=== PATIENT | female | born 1940 ===

== ENCOUNTER 2016-04-27 07:16 | Inpatient (IN) | payer OTHER ==
[~2016-04-27] VITALS: Ht 157.5 cm; Wt 61.2 kg
[2016-04-27] MEDS ORDERED: ALVIMOPAN 12 MG CAPSULE PO ONE (07:47)
[2016-04-27] MEDS ORDERED: cefOXitin SODIUM 2 GM in D5W 100 ML IV ONE (08:00)
[2016-04-27] MEDS ORDERED: ALEN10TA6 PO (08:31)
[2016-04-27] MEDS ORDERED: DILT60TA35 PO (08:31)
[2016-04-27] MEDS ORDERED: EZET10TA PO (08:31)
[2016-04-27] MEDS ORDERED: METF-509 PO (08:31)
[2016-04-27] MEDS ORDERED: PROPOFOL 200MG/ 20ML VIAL (DIPRIVAN) IV ONE (09:11)
[2016-04-27] MEDS ORDERED: ONDANSETRON HCL 4 MG/2 ML VIAL IVP ONE (09:11)
[2016-04-27] MEDS ORDERED: LR 1,000 ML IV.SOLN IV ONE (09:11)
[2016-04-27] MEDS ORDERED: cefOXitin SODIUM 2 GM/VIAL (MEFOXIN) IV ONE (09:11)
[2016-04-27] MEDS ORDERED: MIDAZOLAM HCL 5 MG/5 ML VIAL IVP ONE (09:11)
[2016-04-27] MEDS ORDERED: ROCURONIUM BROMIDE 10 MG/ML (ZEMURON) IV ONE (09:11)
[2016-04-27] MEDS ORDERED: fentaNYL CITRATE/PF 100 MCG/2 ML AMP IVP ONE (09:11)
[2016-04-27] MEDS ORDERED: SEVOFLURANE 15 MIN GAS INH ONE (09:11)
[2016-04-27] MEDS ORDERED: NS IRRIG SOLN 1000 ML IR ONE (09:11)
[2016-04-27] MEDS ORDERED: KETOROLAC TROMETHAMINE 30 MG VIAL IVP ONE (09:11)
[2016-04-27] MEDS ORDERED: METOPROLOL TARTRATE 5 MG/5 ML VIAL IVP ONE (09:11)
[2016-04-27] MEDS ORDERED: LR 1,000 ML IV SCH (09:57)
[2016-04-27] MEDS ORDERED: HYDROmorphone 1 MG INJ. 1 MG/ML AMPUL IVP PRN (10:00)
[2016-04-27] MEDS ORDERED: ONDANSETRON HCL 4 MG/2 ML VIAL IVP PRN ×2 (10:00→12:15)
[2016-04-27] MEDS ORDERED: MEPERIDINE HCL/PF 25 MG/ML DISP.SYRIN IVP PRN ×2 (10:00)
[2016-04-27] MEDS ORDERED: HYDROmorphone 2 MG/ML VIAL IVP PRN ×2 (10:00)
[2016-04-27] MEDS ORDERED: HYDROcodone/ACETAMIN 5-325 MG TAB (NORCO/ VICODIN) PO PRN ×2 (12:15)
[2016-04-27] MEDS ORDERED: ACETAMINOPHEN 325 MG TABLET PO PRN (12:15)
[2016-04-27 12:50] LABS: HEMATOCRIT 37.9 % (36-48); HEMOGLOBIN 12.8 g/dL (12.0-16.0)
[2016-04-27 13:16] LABS: ANION GAP 7 (5-15); CALCIUM 8.3 mg/dL (8.4-11.0); CHLORIDE 106 mmol/L (98-107); CREATININE 1.32 mg/dL (0.55-1.30); GLUCOSE 254 mg/dL (70-99); POTASSIUM 5.3 mmol/L (3.5-5.1); SODIUM SERUM 137 mmol/L (136-145); UREA NITROGEN, BLOOD 10 mg/dL (8-21)
[2016-04-27] MEDS ORDERED: INSULIN REGULAR, HUMAN 100 UNITS/ML, 10 ML VIAL SUBCUT ONE (13:30)
[2016-04-27] MEDS: NACL 0.9% 1,000 ML IV SCH ×2 (13:30→13:37)
[2016-04-27] MEDS ORDERED: HYDROmorphone 1 MG INJ. 1 MG/ML AMPUL ONE (13:58)
--- NOTE | 2016-04-27 14:20 | NUR ---
Received Pt from PACU: Received pt from PACU, Pt is easily arousable to name but sleepy at this time. No acute signs of distress noted. Oxygen 2L via NC, saturating 99%. Dressing to abdomen x2 CDI. Mendoza cath draining well to gravity. Fall precautions in place. SCDs in place. Call light in reach. Bed in lowest position, Side rails x3. at bedside also educated project construction manager light and he is able to return demonstrate. Will reinforce teachings when patient is more awake.
[2016-04-27 14:40] VITALS: BP 124/69; PULSE 78; RESP 19; TEMP 97.6; O2SAT 91
[2016-04-27] MEDS: D5/0.45 NS 1,000 ML IV SCH (14:40)
--- NOTE | 2016-04-27 14:48 | NUR ---
Called Called Dr. Mora, primary MD, to let her know to follow up pt. Order by Dr. Loza.
[2016-04-27 15:34] VITALS: BP 149/77; PULSE 84
--- NOTE | 2016-04-27 15:46 | NUR ---
Rounds: Pt sitting semi-fowlers in bed. Pt tolerates ice chips at this time. Mendoza cath draining well to gravity. Call light in reach. Pt denies pain and remains easily arousable. at bedside. Continue to monitor.
[2016-04-27 16:00] VITALS: BP 124/68; PULSE 75; RESP 18; TEMP 96.8; O2SAT 91
[2016-04-27] MEDS ORDERED: DEXTROSE 50%-WATER 50 ML DISP.SYRIN IVP PRN ×2 (16:30)
[2016-04-27] MEDS ORDERED: GLUCOSE 15 GM GEL (in 37.5 GM TUBE) PO PRN ×2 (16:30)
--- NOTE | 2016-04-27 17:40 | NUR ---
Rounds: Blood sugar checked and coverage given per MD order. Pt also medicated for c/o pain. IV intact to LUE. Call light in reach. Continue to monitor.
[2016-04-27] MEDS: HYDROmorphone 1 MG INJ. 1 MG/ML AMPUL IVP PRN ×2 (17:48→22:42)
[2016-04-27] MEDS: INSULIN REGULAR, HUMAN 100 UNITS/ML, 10 ML VIAL (novoLIN R) SUBCUT PRN ×2 (18:05→23:59)
--- NOTE | 2016-04-27 18:24 | NUR ---
Closing Note: Pt sitting semi-fowlers in bed. No acute signs of distress noted at this time. IV intact to RUE with no redness or swelling noted to site. Dressing to abdomen CDI. Mendoza cath draining well to gravity. Pt denies pain at this time. Call light in reach. Bed alarm on. Endorse plan of care to DENISE WELCH.
[2016-04-27 19:30] VITALS: BP 124/62; PULSE 77; RESP 16; TEMP 96.8; O2SAT 99
--- NOTE | 2016-04-27 19:30 | NUR ---
notes received the pt from the day nurse,pt a/a/ox4 no c/o pain or discomfort when asked.dressings to abdomen are clean and dry.goss catheter intact and draining clear yellow urine.bed alarm is on.call light within reach.safety measures in progress.will continue to monitor pt using the incentive spirometer and can get it up to 1000.
--- NOTE | 2016-04-27 19:30 | NUR ---
notes scd in place to lower extremities.
[2016-04-27] MEDS: FAMOTIDINE PF 20 MG/2 ML VIAL IVP SCH (19:59)
[2016-04-27] MEDS: cefOXitin SODIUM 2 GM in D5W 100 ML IV SCH (20:00)
[2016-04-27] MEDS: ALVIMOPAN 12 MG CAPSULE PO SCH (20:36)
--- NOTE | 2016-04-27 21:10 | NUR ---
notes pt watching tv and stated her pain is returning ,stated that she wants to wait before she receives more pain medication.
--- NOTE | 2016-04-27 22:37 | NUR ---
notes pt stated her pain is now 7/10 RN was notified and will medicate the pt.
--- NOTE | 2016-04-27 22:42 | NUR ---
pain medication/incentive spirometer Dilaudid 1mg IVP administered for abdominal pain 08/24, educated pt on possible side effects. Had pt demonstrate how to use incentive spirometer, reeducated pt on proper way to use it since she was blowing out. reminded pt to cough and deep breathe and use pillow support in her abdomen to protect incision. pt stated she will. fall risk precautions in place, call light within reach, bed alarm on.
--- NOTE | 2016-04-27 23:33 | NUR ---
NOTES PT RESTING WITH EYES CLOSED.CALL LIGHT WITHIN REACH.CONTINUE TO MONITOR.
[2016-04-28] VITALS (7 sets, daily range): BP systolic 132–145; BP diastolic 72–82; PULSE 61–79; RESP 14–19; TEMP 96.8–98.8; O2SAT 96–100
--- NOTE | 2016-04-28 01:32 | NUR ---
NOTES PT SLEEPING,NO DISTRESS NOTED.CALL LIGHT WITHIN REACH.CONTINUE TO MONITOR.
[2016-04-28] MEDS: D5/0.45 NS 1,000 ML IV SCH ×3 (01:55→21:08)
--- NOTE | 2016-04-28 03:33 | NUR ---
NOTES PT SLEEPING,NO DISTRESS NOTED.CONTINUE TO MONITOR
--- NOTE | 2016-04-28 05:27 | NUR ---
NOTES PT RESTING WITH NO COMPLAINTS.CONTINUE TO MONITOR,
[2016-04-28] MEDS: INSULIN REGULAR, HUMAN 100 UNITS/ML, 10 ML VIAL (novoLIN R) SUBCUT PRN (06:14)
--- NOTE | 2016-04-28 06:22 | NUR ---
CLOSING NOTES PT AWAKE ALERT,DRESSINGS TO ABDOMEN REMAIN DRY.ACCUCHECK WAS 151,INSULIN GIVEN PER S/S.WILL ENDORSE THE CARE OF THE PT TO THE DAY NURSE.
[2016-04-28 07:30] LABS: BASOPHILS % (AUTO) 0.2 % (0.0-2.0); HEMOGLOBIN 12.1 g/dL (12.0-16.0); LYMPHOCYTES # (AUTO) 1.8 K/uL (1.0-5.5); MEAN CORPUSCULAR HEMOGLOBIN 32 pg (27-31); MEAN CORPUSCULAR HGB CONC 35 % (32-36); MEAN CORPUSCULAR VOLUME 94 fL (79.0-98.0); MONOCYTES # (AUTO) 0.9 K/uL (0.0-1.0); MONOCYTES % (AUTO) 7.3 % (1.7-9.3); NEUTROPHILS # (AUTO) 9.2 K/uL (1.8-7.7); NEUTROPHILS % (AUTO) 77.5 % (40.0-70.0); PLATELET COUNT (AUTO) 315 K/uL (130-430); RED BLOOD CELL COUNT(AUTO) 3.73 MIL/uL (4.2-6.2); WHITE BLOOD COUNT (AUTO) 11.9 K/uL (4.8-10.8)
[2016-04-28 07:39] LABS: ALANINE AMINOTRANSFERASE 103 U/L (12-78); ALBUMIN 3.2 g/dL (3.4-4.8); ANION GAP 8 (5-15); ASPARTATE AMINOTRANSFERASE 59 U/L (10-37); CALCIUM 7.4 mg/dL (8.4-11.0); CHLORIDE 103 mmol/L (98-107); CREATININE 0.84 mg/dL (0.55-1.30); GLUCOSE 148 mg/dL (70-99); SODIUM SERUM 136 mmol/L (136-145); TOTAL BILIRUBIN 0.3 mg/dL (0.0-1.0); TOTAL PROTEIN, SERUM 6.5 g/dL (6.4-8.3); UREA NITROGEN, BLOOD 9 mg/dL (8-21)
--- NOTE | 2016-04-28 07:49 | NUR ---
AM Rounds: Received pt sitting semi-fowlers in bed. No acute signs of distress noted at this time. IV intact to LUE. Patient denies pain. Call light in reach. Continue to monitor.
[2016-04-28] MEDS: cefOXitin SODIUM 2 GM in D5W 100 ML IV SCH (08:53)
[2016-04-28] MEDS: ALVIMOPAN 12 MG CAPSULE PO SCH ×2 (08:53→21:04)
[2016-04-28] MEDS: FAMOTIDINE PF 20 MG/2 ML VIAL IVP SCH ×2 (08:53→20:23)
--- NOTE | 2016-04-28 09:03 | NUR ---
Nutrition Update Vamsi Scale 14 noted. Pt admitted for malignant neoplasm of colon, unspecified. Diet: NPO BMI: 24.7 kg/m2 RD to follow per nutrition care standards.
--- NOTE | 2016-04-28 09:10 | NUR ---
RN Rounds/IS Follow-Up: AM meds given per MD order. Pt tolerates well at this time. Pt able to return demonstrate use of IS at 1000mL inspired air. Pt verbalizes understanding of need to use 10xhr while awake. No other needs noted at this time. Dressings to abdomen remain CDI, goss cath draining well to gravity. Call light in reach. Bowel sounds hypoactive. Continue to monitor.
--- NOTE | 2016-04-28 10:33 | NUR ---
for any d/c needs call Anita bateman rn/bradley/kaur hcp [phone]
--- NOTE | 2016-04-28 11:38 | NUR ---
Rounds: Pt sitting semi-fowlers in bed. No acute signs of distress noted. IV intact to LUE. Blood sugar checked and no coverage given. Call light in lap. continue to monitor.
--- NOTE | 2016-04-28 13:40 | NUR ---
Rounds: Pt sitting up in bed. No acute signs of distress noted. IV intact to LUE with no redness or swelling noted to site. Call light in reach. Pt denies pain. IS at bedside, pt is able to return demonstrate. Continue to monitor.
--- NOTE | 2016-04-28 15:40 | NUR ---
Rounds: Pt up and ambulating well in hallway with physical therapy. No acute signs of distress noted. Pt denies pain. Abdominal binder in place while ambulating. Continue to monitor.
[2016-04-28] MEDS: METOCLOPRAMIDE HCL 10 MG/2 ML VIAL IVP SCH ×2 (17:34→23:34)
--- NOTE | 2016-04-28 17:50 | NUR ---
Rounds: Pt sitting up in bed. No acute signs of distress noted. IV intact to RUE. Pt medicated for pain. Blood sugar checked and no coverage given. Call light in reach. Continue to monitor.
--- NOTE | 2016-04-28 18:44 | NUR ---
Closing Note: Pt sitting semi-fowlers in bed. No acute signs of distress noted at this time. IV intact to LUE with no redness or swelling noted to site. IS at bedside, pt able to return demonstrate. Pt tolerates sips of clear liquid at this srinivas. Call light in reach. Endorse plan of care to NOC RN.
--- NOTE | 2016-04-28 19:30 | NUR ---
notes received the pt from the day nurse.pt a/a/ox4 denies pain at this time .abdominal dressings are dry and intact goss cath ,intact pt using the incentive spirometer well .iv infusing well at 100cc/hr.scd in place to lower extremities.o2 via nc at 2l/min.call light within reach,safety measures in progress.continue to monitor.
--- NOTE | 2016-04-28 21:38 | NUR ---
NOTES PT WATCHING TV WITH NO COMPLAINTS.CONTINUE TO MONITOR.
--- NOTE | 2016-04-28 23:32 | NUR ---
NOTES RESTING WITH NO COMPLAINTS.CALL LIGHT WITHIN REACH.CONTINUE TO MONITOR.
--- NOTE | 2016-04-29 01:41 | NUR ---
notes pt sleeping,no distress noted.call light within reach.continue to monitor.
--- NOTE | 2016-04-29 03:35 | NUR ---
notes pt sleeping,call light within reach.continue to monitor.
[2016-04-29 04:58] VITALS: BP 170/90; PULSE 88; RESP 18; TEMP 97.7; O2SAT 94
[2016-04-29] MEDS: METOCLOPRAMIDE HCL 10 MG/2 ML VIAL IVP SCH ×2 (05:03→12:11)
--- NOTE | 2016-04-29 05:20 | NUR ---
notes pt resting ,call light within reach.will continue to monitor.
--- NOTE | 2016-04-29 05:39 | NUR ---
notes goss catheter dc:d.pt states relief.
--- NOTE | 2016-04-29 05:44 | NUR ---
notes pt assisted up to the bathroom ,wig comber stated the pt had a small amount of diarrhea.assisted back to bed with call light at her side.
[2016-04-29] MEDS: INSULIN REGULAR, HUMAN 100 UNITS/ML, 10 ML VIAL (novoLIN R) SUBCUT PRN (06:01)
--- NOTE | 2016-04-29 06:15 | NUR ---
closing notes pt watching tv with no complaints.will endorse the care of the pt to the day nurse.
--- NOTE | 2016-04-29 07:00 | NUR ---
RECEIVED REPORT FROM RAIL DETECTOR CAR OPERATOR NURSE, PT RESTING, NO C/O PAIN, CALL LIGHT IN REACH.
[2016-04-29 07:04] LABS: BASOPHILS # (AUTO) 0.1 K/uL (0.0-0.2); BASOPHILS % (AUTO) 0.5 % (0.0-2.0); EOSINOPHILS % (AUTO) 0.2 % (0.0-4.0); HEMATOCRIT 40.2 % (36-48); HEMOGLOBIN 13.4 g/dL (12.0-16.0); LYMPHOCYTES # (AUTO) 2.6 K/uL (1.0-5.5); LYMPHOCYTES % (AUTO) 20.1 % (20.5-51.5); MEAN CORPUSCULAR HEMOGLOBIN 31 pg (27-31); MEAN CORPUSCULAR HGB CONC 33 % (32-36); MEAN CORPUSCULAR VOLUME 94 fL (79.0-98.0); MONOCYTES # (AUTO) 0.9 K/uL (0.0-1.0); NEUTROPHILS # (AUTO) 9.4 K/uL (1.8-7.7); NEUTROPHILS % (AUTO) 72.2 % (40.0-70.0); PLATELET COUNT (AUTO) 407 K/uL (130-430); RED BLOOD CELL COUNT(AUTO) 4.28 MIL/uL (4.2-6.2); RED CELL DISTRIBUTION WIDTH 12.1 % (9.0-15.0)
[2016-04-29 07:29] LABS: ANION GAP 9 (5-15); CALCIUM 8.5 mg/dL (8.4-11.0); CHLORIDE 102 mmol/L (98-107); GLUCOSE 163 mg/dL (70-99); POTASSIUM 3.4 mmol/L (3.5-5.1); SODIUM SERUM 138 mmol/L (136-145); UREA NITROGEN, BLOOD 6 mg/dL (8-21)
[2016-04-29 08:00] VITALS: BP 154/82; PULSE 94; RESP 20; TEMP 96.9
[2016-04-29 08:45] VITALS: BP 154/82; PULSE 94; RESP 20; TEMP 96.8; O2SAT 95
[2016-04-29] MEDS: FAMOTIDINE PF 20 MG/2 ML VIAL IVP SCH (08:45)
[2016-04-29] MEDS: ALVIMOPAN 12 MG CAPSULE PO SCH (09:57)
[2016-04-29 12:14] VITALS: BP 135/95; PULSE 16; RESP 16; TEMP 97.7; O2SAT 95
--- NOTE | 2016-04-29 12:35 | NUR ---
PT EATING LUNCH, IVF INFUSING WELL, NO C/O PAIN, NO DISTRESS, CALL LIGHT IN REACH.
[2016-04-29] MEDS ORDERED: DILTIAZEM HCL 60 MG TABLET PO SCH (14:00)
--- NOTE | 2016-04-29 14:00 | NUR ---
PT RESTING IN BED, NO DISTRESS, NO C/O PAIN, ABD DRSG IN PLACE, NO REDNESS, OR DRAINAGE NOTED, CALL LIGHT IN REACH, AT BEDSIDE.
--- NOTE | 2016-04-29 15:57 | NUR ---
PHYSICAL THERAPY CO-SIGN The Physical Therapy Progress Notes documented by Ripening Room Hand have been reviewed. I CONCUR W/CHANGE COORDINATOR NOTE; Pt SHOWING PROGRESS WITH POC; CONT WITH HEP EDUCATION AND SAFETY, TO DC Pt TOMORROW AFTER TX IF CURRENT STATUS MAINTAINED. Reviewed/Co-Signed by: Kaylene Hayden PT Documentation Done by: SOFÍA GRIFFIN CHANGE COORDINATOR Addendum: 04/29/16 at 1559 by Kaylene Hadyen PT Amended: Links added.
[2016-04-29 16:23] VITALS: BP 130/65; PULSE 108; RESP 20; TEMP 97.7; O2SAT 95
[2016-04-29 16:54] VITALS: BP 155/81; PULSE 101; RESP 16; TEMP 98.9; O2SAT 93
--- NOTE | 2016-04-29 18:04 | NUR ---
PT EATING DINNER WITH , NO C/O PAIN, PT SIGNED PAPERS FOR DISCHARGE. WILL BE GOING HOME BY AUTO
--- NOTE | 2016-04-29 18:36 | NUR ---
HEPLOCK TAKEN OUT, PT IS DRESSED, ESCORTED PT OUT BY W/C, TOOK PT HOME BY AUTOMOBILE. PT LEFT IN STABLE CONDITION
--- NOTE | 2016-05-05 15:45 | NUR ---
Discharge Follow Up Phone Call GRINDING MACHINE OPERATOR phoned patient, . Patient stated she was doing fine. She has a follow up appointment with Dr Loza on 05/06/16. She has no other questions or concerns. She received no new prescriptions. No further follow up calls needed.
== END 2016-04-29 18:23 | disposition home or self-care (01) | DRG 331 ==
LOC: SMU 07:16
PROVIDERS: ADMIT Colon & Rectal Surgery; ATTEND Colon & Rectal Surgery
PROC: 0DBG4ZZ Excision of Left Large Intestine, Percutaneous Endoscopic Approach (ICD-10-PCS; principal; 2016-04-27 09:30)
DX: C18.9 Malignant neoplasm of colon, unspecified (principal); N18.2 Chronic kidney disease, stage 2 (mild); I12.9 Hypertensive chronic kidney disease with stage 1 through stage 4 chronic kidney disease, or unspecified chronic kidney disease; E11.22 Type 2 diabetes mellitus with diabetic chronic kidney disease; E11.40 Type 2 diabetes mellitus with diabetic neuropathy, unspecified; M81.0 Age-related osteoporosis without current pathological fracture; H26.9 Unspecified cataract; E55.9 Vitamin D deficiency, unspecified; Z90.49 Acquired absence of other specified parts of digestive tract; Z83.6 Family history of other diseases of the respiratory system; Z82.49 Family history of ischemic heart disease and other diseases of the circulatory system; Z80.3 Family history of malignant neoplasm of breast; Z82.3 Family history of stroke; Z80.1 Family history of malignant neoplasm of trachea, bronchus and lung; Z80.0 Family history of malignant neoplasm of digestive organs; Z87.891 Personal history of nicotine dependence; Z88.8 Allergy status to other drugs, medicaments and biological substances
CPT/HCPCS: 36415; 80048; 80053; 82948; 82962; 83735-TC; 85018-TC; 85025; 87081; 88307; 88309; 94010; 97110-GP; 97116-GP; 97530-GP; C1727; E0190; J0694; J1170; J1815; J1885; J2250; J2405; J2704; J2765; J3010; J3490; J7030; J7060; J7120